=== PATIENT | female | born 1970 | race Caucasian/White ===

== ENCOUNTER 2017-12-17 11:25 | Emergency (ER) | payer SELFPAY ==
[~2017-12-17] VITALS: Ht 167.6 cm; Wt 79.0 kg
[2017-12-17 13:29] VITALS: BP 141/76
[2017-12-17] MEDS ORDERED: DIPHENHYDRAMINE 25MG CAPSULE PO ONE (13:30)
[2017-12-17] MEDS ORDERED: DEXAMETHASONE 4MG/ML 1ML VIAL IM ONE (13:45)
== END 2017-12-17 14:10 | disposition home or self-care (01) ==
LOC: ER 13:17
DX: L50.0 Allergic urticaria (principal)
CPT/HCPCS: 96372; 99283; J1100; Q0163